=== PATIENT | male | born 1965 | race Caucasian/White ===

== ENCOUNTER → 2022-07-29 | Outpatient (CLI) | payer BC ==
[~2022-07-29] MED LIST: CATHETER FLUSH 10 ML SYR IVP PRN
[2022-07-29 08:37] VITALS: BP 134/89
--- NOTE | 2022-07-29 10:06 | Cardiology Stress Test Report ---
Stress Test Report Date of Procedure/Referring: Date of Procedure: Jul 29, 2022 PCP Nicole Mckeon MD Admitting Physician Admitting Physician: Attending Physician: Delmar Shea MD Indications: cp Baseline Heart Rate: 78 Baseline Blood Pressure: Blood Pressure Systolic: 134 Blood Pressure Diastolic: 89 Vital Signs Date Time Temp Pulse Resp B/P (MAP) Pulse Ox O2 Delivery O2 Flow Rate FiO2 07/29/22 08:37 66 134/89 (104) Baseline Vital Signs Vital Signs Date Time Temp Pulse Resp B/P (MAP) Pulse Ox O2 Delivery O2 Flow Rate FiO2 07/29/22 08:37 66 134/89 (104) Baseline EKG: Baseline EKG: NSR Summary: After explaining the procedure and details to the patient, he signed the conse nt and was brought to the stress nuclear laboratory. Patient exercised on standard Daron protocol, EKG, heart rate and blood pressure were monitored continuously, resting and stress doses of radio tracer were injected, imaging was acquired and reviewed in the short axis, horizontal long axis and vertical long axis views Patient was able to exercise for a total of 9 minutes on Daron protocol, METs 10.5 Maximum heart rate 143 Maximum blood pressure 179/95 Stress EKG, Minimal nondiagnostic changes Recovery EKG, Return to baseline TID: 0.88 SSS: 4 SDS: 4 EF: 67 Conclusion: Good exercise tolerance for 9 minutes on standard Daron protocol, 10.5 METS achieving 88% of maximal expected heart rate Appropriate heart rate response to exercise with hypertensive response to exercise return to baseline during recovery Nondiagnostic EKG changes with exercise return to baseline during recovery Diaphragmatic attenuation with typical male pattern, mild decrease uptake at the mid to apical inferior wall with mild reversibility, probably secondary to the diaphragmatic attenuation, overall there is no significant ischemia or infarction noted on SPECT images. Normal left ventricular size, ejection fraction 67% Copy Copies To 1: NICOLE MCKEON MD, BASHAR J MD Jul 29, 2022 10:06
== END ==
LOC: CARD 07:23
PROVIDERS: ATTEND Internal Medicine Cardiovascular Disease
DX: R07.9 Chest pain, unspecified (principal)
CPT/HCPCS: 78452; 93017